=== PATIENT | female | born 2005 | race Caucasian/White ===

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

== ENCOUNTER 2024-07-14 17:24 | Emergency (ER) | payer BC, OTHER, SELFPAY ==
--- OUTSIDE RECORDS SUMMARY | 2024-07-14 17:27 | XMS_ITS | Encounter Summary ---
Author Organization [facility] Address [address] [place] [address] Care Team Providers Care Maintenance Supervisor Mechanical Name Role Phone Hugo Woo MD Primary Care Provider [phone] Provider, No Attributed RESOURCE Unavailable Unavailable Hugo Woo MD Unavailable [phone] Hugo Woo MD Primary Care Provider [phone] Hugo Woo MD Unavailable [phone] Hugo Woo MD Unavailable [phone] Encounter Details Date Type Department Care Team (Late st Contact Info) Description 04/07/2011 Immunization [facility] [address] [facility] [address] [place] [address] Janel Hunt, RN [address] [facility], [place] [id number] Preventative health care (Primary Dx) Social History Tobacco Use Types Packs/Day Years Used Date Smoking Tobacco: Never Assessed Comments Unknown Sex and Gender Information Value Date Recorded Sex Assigned at Not on file Legal Sex Female 4:02 AM CDT Gender Identity Not on file Sexual Orientation Not on file documented as of this encounter Plan of Treatment Not on file documented as of this encounter Visit Diagnoses Diagnosis Preventative health care- Primary Routine general medical examination at a health care facility documented in this encounter Care Teams Maintenance Supervisor Mechanical Relationship Specialty Start Date End Date Hugo Woo MD [address] [place] [address] PCP - General 07/19/06 03/23/19 Provider, No Attributed, RESOURCE [address] PCP - Attributed Provider 02/29/16 7 Hugo Woo MD [address] [place] [address] PCP - Attributed Provider 10/26/16 Hugo Woo MD [address] [place] [address] PCP - General 03/24/19 Hugo Woo MD [address] [place] [address] PCP - Attributed Provider 04/23/1909/29 Hugo Woo MD [address] [address] PCP - Attributed Provider 10/22/20 documented as of this encounter
--- OUTSIDE RECORDS SUMMARY | 2024-07-14 17:27 | XMS_ITS | Clinical Summary ---
Author Organization [facility] Address [address] [place] [address] [address] [place] [address] Care Team Providers Care Logistics Project Manager Name Role Phone Hugo Woo MD Primary Care Provider [phone] Hguo Woo MD Unavailable [phone] Allergies No known active allergies Medications ibuprofen (ADVIL;MOTRIN-I B) 200 MG capsule Take 400 mg by mouth every 4 to 6 hours as needed for severe pain or moderate pain Active drospirenone-et hinyl estradiol (PATIENCE) 3-0.03 mg tabletIndicatio ns:Acne vulgaris Take 1 tablet by mouth 1 time per day 84 tablet 2 03/11/2024 03/16/20 25 Active sertraline (ZOLOFT) 50 mg tabletIndicatio ns:Anxiety Take 1 tablet (50 mg) by mouth 1 time per day 90 tablet 2 03/11/2024 03/16/20 25 Active Active Problems No known active problems Immunizations Immunization Administration Dates Next Due FLU VACCINE TRIVALENT MULTIDOSE(Fluvirin,Afluria) 02/08/2010 FLU VACCINE TRIVALENT MULTIDOSE(Fluvirin,Afluria) 04/07/2011 FLU VACCINE TRIVALENT SINGLE DOSE(Fluvirin,Afluria) 03/09/2010 DTAP-HEP B-IPV 06/02/2005,03/31/2005,02/03/2005 DTaP(Infanrix) 11/12/2009,02/21/2006 FLU VACCINE SINGLE DOSE 0.5mL(6MO+Fluzone/Flulaval/Fluarix,3YR +Afluria) 02/14/2016 HIB,unspecified 11/21/2005, 6,03/31/2005,02/03 HPV9 06/23/2016,02/14/2016,12/13/2015 Hep A,peds/adol 06/23/2016,12/13/2015 INFLUENZA SINGLE DOSE 0.5ML 6 MONTHS AND UP 05/08/2022,02/18/2020,02/19/2019,02/20,02/05/2017,02/03/2015,02/06/2013 INFLUENZA(FLUMIST)INTRANASAL VACCINE 2 TO 49 YEARS 02/26/2014 IPV 11/12/2009 Influenza Vaccine 03/06/2008 Influenza Vaccine,unspecified 05/02/2022 ,05/06/2021,02/26/2007,04/16,03/16/2006 MMR 11/12/2009,11/21/2005 Meningococcal B,recombinant (Trumenba) ,11/26/2020 Meningococcal MCV4P (Menactra) 11/26/2020,2015 Pfizer COVID-19 Vaccine(Purp le Top) 12 Years and up 05/30/2021,05/06/2021 Pneumococcal Conj PCV7 11/21/2005 TDAP 12/13/2015 Varicella 11/12/2009,02/21/2006 Family History Medical History Relation Comments Thyroid Disease Father hypo Diabetes Maternal Aunt Diabetes Maternal Grandfather Hypertension Maternal Grandfather Thyroid Disease Maternal Grandfather hypo Diabetes Maternal Grandmother Gestational Diabetes Mother Hypertension Mother Thyroid Disease Mother hypo Relation Status Comments Father Maternal Aunt Maternal Grandfather Maternal Grandmother Mother Social History Tobacco Use Types Packs/Day Years Used Date Smoking Tobacco: Never Smokeless Tobacco: Never Tobacco Cessation:Counseling Given: Not Answered Alcohol Use Standard Drinks/Week Comments No 0 (1 standard drink = 0.6 oz pur e alcohol) PHQ-2 Answer Date Recorded PHQ-2 Total 0 07/07/2022 Abuse/Neglect Answer Date Recorded Member of Clubs or Organizations Not on file 12/14/2023 Does the patient display any signs or symptoms of abuse or neglect? No 12/14/2023 Sexually Active Control Partners Comments Never Comments No Sex and Gender Information Value Date Recorded Sex Assigned at Not on file Legal Sex Female 4:02 AM CDT Gender Identity Not on file Sexual Orientation Not on file Last Filed Vital Signs Vital Sign Reading Time Taken Comments Blood Pressure 124/77 12/14/2023 10:51 AM CDT Pulse 67 12/14/2023 10:51 AM CDT Temperature 36.7 C (98 F) 12/11/2022 1:30 PM CDT Respiratory Rate 12 12/14/2023 10:51 AM CDT Oxygen Saturation 98% 10/27/2017 8:03 PM CDT Inhaled Oxygen Concentration - - Weight 83.5 kg (184 lb) 12/14/2023 10:51 AM CDT Height 168.9 cm (5' 6.5) 12/14/2023 10:51 AM CD T Body Mass Index 29.25 12/14/2023 10:51 AM CDT Plan of Treatment Health Maintenance Due Date Last Done Comments Hepatitis C Screening 2004 HIV One Time Screening Ages 15-65 11/16/2019 Covid-19 Vaccine ( season) 2023 05/30/2021, 05/06/2021 Influenza Vaccine (#1) 2023 , 05/02/2022, 05/06/2021, Additional history exists DTAP,TDAP or TD Vaccine (7 - Td or Tdap) 12/12/2025 12/13/2015, 11/12/2009, 02/21/2006, Additional history exists Hepatitis B Vaccine Completed 06/02/2005, 03/31/2005, 02/03/2005 HPV Vaccine Completed 06/23/2016, 01/28, 12/13/2015 Men B Vaccine Completed 07/07/2022, 11/26/2020 Lipid Screening Completed 11/07/2022 Pneumococcal Vaccine (0-5yr; and At-risk 6-49yr) Aged Out No longer el igible based on patient's age to complete this topic Procedures Procedure Name Priority Date/Time Associated Diagnosis Comments LIPID PANEL Routine 11/07/2022 8:06 AM CDT Screening for cardiovascular condition from Last 3 Months or Most Recently Relevant to Health Maintenance Results * (ABNORMAL) LIPID PANEL (11/07/2022 8:06 AM CDT) Cholesterol 213(H) <170 mg/dL 11/07/2022 9:45 AM CDT [facility] Triglyceride 88 <90 mg/dL 11/07/2022 9:45 AM CDT [facility] HDL 62 >=45 mg/dL 11/07/2022 9:45 AM CDT [facility] LDL 133(H) <=110 mg/dL 11/07/2022 9:45 AM CDT [facility] Fasting Yes Yes, No, Unknown 11/07/2022 9:45 AM CDT [facility] Blood BLOOD SPECIMEN / Unknown Venipuncture / Unknown 11/07/2022 8:06 AM CDT 11/07/2022 8:07 AM CDT Hugo Woo MD LAB BLOOD Final Result [facility] [address] [place] [address] from Last 3 Months or Most Recently Relevant to Health Maintenance Care Teams Logistics Project Manager Relationship Specialty Start Date End Date Hugo Woo MD [address] [facility] [place] [address] PCP - General 03/24/19 Hugo Woo MD [address] [place] [address] PCP - Attributed Provider 10/22/20
--- OUTSIDE RECORDS SUMMARY | 2024-07-14 17:27 | XMS_ITS | Clinical Summary ---
Author Organization [facility] Address [address] [place] [id number] Care Team Providers Care Rn First Assist Name Role Phone Hugo Woo Primary Care Provider [phone] Allergies No known active allergies Medications No known medications Active Problems No known active problems Social History Tobacco Use Types Packs/Day Years Used Date Smoking Tobacco: Never Assessed Comments Unknown Sex and Gender Information Value Date Recorded Sex Assigned at Not on file Legal Sex Female 10:41 AM CDT Gender Identity Not on file Sexual Orientation Not on file Obstetrics History Plan of Treatment Health Maintenance Due Date Last Done Comments Well Child Check for age 3-20 10/17/2007 Tdap 11/16/2015 Depression screening for age 12+ 2016 HIV for age 15-65 11/16/2019 HPV series for age 9-26 (1 - 3-dose series) 11/16/2019 Chlamydia for age 16-24 2020 BMI (ht and wt on same day) for age 18+ 2022 Hepatitis C screening for ag e 18-79 2022 COVID-19 vaccine series (3 2023-25 season) 2023 05/30/2021, 05/06/2021 Influenza Vaccine (#1) 2023 Meningococcal series for age 11-21 Aged Out No longer eligible b ased on patient's age to complete this topic Pneumococcal series for age 6-49 Aged Out No longer eligible b ased on patient's age to complete this topic Insurance [employer] Care Teams Rn First Assist Relationship Specialty Start Date End Date Hugo Woo [address] [place] [address] PCP - General Family Practice 04/04/23
[2024-07-14 17:57] VITALS: BP 139/78; PULSE 66; RESP 18; TEMP 36.7; O2SAT 100; BMI 29.1
--- NOTE | 2024-07-14 20:06 | ED_ITS ---
HPI - General Adult General Date Seen: 07/14/24 Chief complaint: Head Injury/Pain Stated complaint: facial injury Time Seen by Provider: 07/14/24 19:55 History of Present Illness HPI narrative: 18-year-old generally healthy female . 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 She is presenting to the ER today with her teammate. She is also accompanied by her mother. She and her teammate were both outfield hers. They were both running after a long fly ball today when they ran and collided with each other running at top speed. They struck their faces and heads together. She is unsure if she had LOC. however she does have significant facial pain with pain and swelling on her left cheek. She also has pain in the left TMJ in feels like her left molars do not line up quite straight. She also suffered epistaxis willy was bleeding for lower left nostril and put a cotton plug in it. She has a frontal headache. She has been nauseous and has now had 4 episodes of vomiting (1 prior to arrival and 3 since she arrived here). She says that her left cheek is swollen and has some bruising under her left eye and her left side of the jaw is also swollen. Vision is normal in both eyes. Also mild posterior neck pain. No numbness or tingling in her arms or legs. No other injuries. She has no history of coagulopathy. Related Data Home Medications ?Medication ?Instructions ?Recorded ?Confirmed drospirenone 3 mg-ethinyl 1 tab PO DAILY 07/14/24 07/14/24 estradiol 0.03 mg tablet sertraline 50 mg tablet 50 mg PO DAILY 07/14/24 07/14/24 Allergies Allergy/AdvReac Type Severity Reaction Status Date / Time No Known Drug Allergies Allergy Verified 07/14/24 18:03 [facility] Medical History (Updated 07/14/24 @ 22:43 by Michael Amaya MD) No significant past medical history Surgical History (Updated 07/14/24 @ 20:34 by Carlos Casey RN) No significant past surgical history Social History Smoking Status: Never smoker Second hand tobacco smoke exposure: No How often do you have a drink containing alcohol: never AUDIT-C Alcohol total score: 0 Non-prescribed substance use: denies use Exam Narrative: Exam Narrative: Primary Survey: A- patent. Speaking clearly. Phonation normal. No stridor. B- breathing easily. Lung sounds clear and equal. Oxygen saturation normal on room air C- no active bleeding. Blood pressure stable. Symmetric pulses and cap refill in 4 extremities. D- alert and oriented x3. GCS 15. No focal deficits. Constitutional: Appears well-developed and well-nourished. Alert. Conversant. Actively vomiting as I enter the room HENT: Head: No depressed skull fracture, Raccoon Eyes, Abel's sign, or hemotympanum. Face normal. TMs normal. Nose: Swollen. Recent left nares epistaxis. No active bleeding. Nasal septum is normal. No septal deviation or hematoma. No nasal lacerations. She has left cheek swelling and ecchymoses. Superficial abrasion just below her left eye which is thought to be triggered by her teammates sunglasses. She also has a superficial abrasion on the body of the left mandible that does not penetrate through the dermis require sutures. She has limited range of motion and mandible but does not have trismus. When she bites down her on her molar she feels like the left side touch is 1st, which is not normal. She has no obvious intraoral injuries or dental injuries. No intraoral lacerations. No trismus. No submandibular swelling Mouth/Throat: Oral mucosa is clear and moist. no trismus. Pharynx normal. Tonsils symmetric. No tonsillar enlargement, erythema, or exudate. Eyes: Conjunctivae normal. EOM normal. Pupils equal, round, and reactive to light. No scleral icterus. Neck: Normal range of motion. Neck supple. No tracheal deviation present. No definite posterior midline tenderness but does have mild posterior neck ache. No definite step-off. Given other injuries including distracting facial injuries, cannot be cleared by nexus Cardiovascular: Normal rate, regular rhythm. No gallop. No friction rub. No murmur heard. Symmetric radial artery pulses Pulmonary/Chest: Effort normal. No stridor. No respiratory distress. No wheezes. No rales. No rhonchi . No tenderness. Abdominal: Soft. Bowel sounds normal. No distension. No mass. No tenderness. No rebound. No guarding. Musculoskeletal: No T or L-spine tenderness RUE: Normal range of motion. No tenderness. No deformity LUE: Normal range of motion. No tenderness. No deformity RLE: Normal range of motion. No edema. No tenderness. No deformity LLE: Normal range of motion. No edema. No tenderness. No deformity Neurological: Alert and oriented to person, place, and time. Normal strength. CN II-VII intact. No sensory deficit. GCS eye subscore is 4. GCS verbal subscore is 5. GCS motor subscore is 6. Normal coordination Skin: Skin is warm and dry. No rash noted. No pallor. Normal capillary refill. Psychiatric: Normal mood. Normal affect. Const: Vital Signs, click to edit/add: Vital Signs - 24 hr 07/14/24 17:57 07/14/24 20:32 07/14/24 22:08 Temperature 98.1 F 98.1 F Pulse Rate [Pulse Oximeter] 66 Respiratory Rate 18 Blood Pressure [Ri ght Upper Arm] 139/78 Pulse Oximetry 100 100 Oxygen Delivery Me thod Room Air 07/14/24 22:48 07/14/24 22:49 Temperature 98.1 F 98.1 F Pulse Rate [Pulse Oximeter] 72 72 Respiratory Rate 18 18 Blood Pressure [Ri ght Upper Arm] 138/85 138/85 Pulse Oximetry 100 Oxygen Delivery Me thod Room Air Course Course ED Course: Recheck-still mildly nauseous after Zofran. Second dose ordered Reevaluation(s) Reevaluation #1: Discussed CT imaging findings with our ENT surgeon, Dr. Hope. Given the complexity of the patient's left maxillary injury, with involvement of the orbital floor, he recommends that she be referred to the Trauma Center for evaluation. He suspect she may need some operative plating. Likely could be done in an expeditious outpatient basis, but hopefully not emergent Reevaluation #2: I contacted [facility]. Discussed initially with Dr. Valdez, ER. Subsequently discussed with Dr. queen , ENT. Dr. Queen recommend that we transfer the patient to [facility] ER tonight so she can be evaluated by ENT and Ophthalmology. Vital Signs Vital signs: Initial Vital Signs Temperature 98.1 F 07/14/24 17:57 Temperature Source Temporal Artery Scan 07/14/24 17:57 Pulse Rate 66 07/14/24 17:57 Respiratory Rate 18 07/14/24 17:57 Blood Pressure 139/78 07/14/24 17:57 Blood Pressure Mean 98 07/14/24 17:57 Blood Pressure Position Sitting 07/14/24 17:57 Pulse Oximetry 100 07/14/24 17:57 Oxygen Delivery Method Room Air 07/14/24 17:57 Vital Signs Temperature 98.1 F 07/14/24 17:57 Pulse Rate 66 07/14/24 17:57 Respiratory Rate 18 07/14/24 17:57 Blood Pressure 139/78 07/14/24 17:57 Pulse Oximetry 100 07/14/24 17:57 Oxygen Delivery Method Room Air 07/14/24 17:57 Temperature 98.1 F 07/14/24 22:49 Pulse Rate 72 07/14/24 22:49 Respiratory Rate 18 07/14/24 22:49 Blood Pressure 138/85 07/14/24 22:49 Pulse Oximetry 100 07/14/24 22:48 Oxygen Delivery Method Room Air 07/14/24 22:48 Medications Administered Medications: Discontinued Medications Generic Name Dose Route Start Last Admin Trade Name Freq PRN Reason Stop Dose Admin Hydrocodone Bitart/Acetaminophen 1 tab 07/14/24 20:10 07/14/24 20:20 Hydrocodone-Acetamin 5-325 Mg 1 Tab PO 07/14/24 20:11 1 tab ONCE ONE Administration Ondansetron HCl 4 mg 07/14/24 20:10 07/14/24 20:20 Ondansetron Odt 4 Mg Tab PO 07/14/24 20:11 4 mg ONCE ONE Administration Ondansetron HCl 4 mg 07/14/24 22:39 07/14/24 22:41 Ondansetron Odt 4 Mg Tab PO 07/14/24 22:40 4 mg ONCE ONE Administration Medical Decision Making [facility] Narrative Medical decision making narrative: 18-year-old female presents to the ER today with injuries after a collision ring a softball game. 1. This patient presents with blunt head trauma. Differential includes intracranial injuries (e.g. skull fracture, epidural hematoma, subdural hematoma, intracerebral hemorrhage, and traumatic subarachnoid hemorrhage), verses concussion or other traumatic brain injury. CT imaging was obtained and fortunately was normal. At this time it appears that the patient's symptoms are due to a concussion. The patient/family understand that they must return if any red flags appear/develop in the coming hours/days, as this may represent an indication to perform a repeat CT scan or further evaluation. I have noted that red flags include: headaches that get worse, increased drowsiness, strange behavior, repetitive speech, seizures, repeated vomiting, growing confusion, increased irritability, slurred speech, weakness or numbness, and loss of responsiveness. This information will also be provided in writing at discharge. I have discussed the second impact syndrome, and the importance of not sustaining repeated concussion in the next 1-2 weeks. Post concussive syndrome is also discussed. The patient's questions have been answered. They have a responsible adult to accompany them home.. 2. Patient's cervical spine could not be cleared by clinical criteria. C-spine CT is obtained and is normal. 3. Facial trauma. Patient did have significant left facial pain, swelling, bruising and also concern for potential mandible injury. Facial CT is obtained and does show a complex fracture involving left maxilla which involves the anterior and posterior hoyos of the maxillary sinus as well as the orbital floor. In discussion with Dr. Hope ENT, on-call for [place] [facility], he recommends referral to the trauma center. We attempted to arrange an outpatient referral to the ENT clinic at [facility]. We digitally transmitted her CT images to the trauma center However the ENT surgeon from [facility] recommends that the patient transfer expeditiously to the [facility] at [facility] for further evaluation. 4. The remainder of her clinical exam is negative for signs of traumatic injury. At this point, with reasonable clinical confidence I think she is stable to transfer to [facility] by private car with her mother. Dr. Valdez, ED and Dr. Queen, ENT are accepting. Imaging Data CT scan - head: Attestation: I have reviewed the pertinent imaging results. Radiologist's impression: IMPRESSION: 1. No skull fracture or acute intracranial hemorrhage identified. 2. Facial structures are detailed in a separate report. CT C spine: Attestation: I have reviewed the pertinent imaging results. Radiologist's impression: Impression: 1. No evidence of acute fracture or traumatic malalignment in the cervical spine. CT facial bones: Attestation: I have reviewed the pertinent imaging results. Radiologist's impression: [] Discharge Plan Discharge Clinical Impression: Fracture of left maxilla, Closed head injury, Fracture of orbital floor Patient Disposition: Xfer Other Condition: Stable Instructions: Facial Fracture (DC), Head Injury (DC) Additional Instructions: This evening, please go directly to the emergency department and [facility] ([facility]) Their emergency department is located on [address] You do have significant injuries to your left cheek. Please see the medical providers at [facility] and they will determine whether not you need surgery to repair your broken left cheek bone and eye socket. Please do not blow your nose or do other activities that might force air through your broken sinus into your cheek You also have signs of a concussion. Concussion is in an visible injury tear brain. You should avoid contact sports or dangerous activities until you are cleared to return to full activity by your training staff at [facility]. Typically we recommend a 7 day period of rest and light activity beginning after your asymptomatic. After 7 days you can then gradually progress back to your normal activities. If you have worsening headache, uncontrolled nausea vomiting, or any concerns, please see your doctors or return to the ER right away. Prescriptions: No Action sertraline 50 mg tablet 50 mg PO DAILY drospirenone-ethinyl estradiol 3-0.03 mg tablet 1 tab PO DAILY Stand Alone Forms: [employer] Info Instructions
--- NOTE | 2024-07-14 20:10 | CRLHL7_ITS ---
For Patients: As a result of the Century Cures Act, medical imaging exams and procedure reports are released immediately into your electronic medical record. You may view this report before your referring provider. If you have questions, please contact your health care provider. Indication: Blunt trauma, facial injury Technique: Helical axial sections were obtained through the facial skeleton, mandible and adjacent structures without intravenous contrast material. Data was reformatted not only in axial but also coronal planes. Comparison: Same-day CT head Findings: Left zygomaticomaxillary complex fracture pattern, involving the inferior orbital rim and floor, anterior and posterior hoyos of the maxillary sinus, and lateral orbital rim. There is sparing of the left zygomatic arch, with suspected additional nondisplaced fracture of the left nasal bone. Remaining facial bones appear grossly intact. Scattered paranasal sinus mucosal thickening, with left maxillary sinus air-fluid level/hemosinus. Bilateral temporomandibular joints appear anatomic. Impression: 1. Left ZMC fracture pattern, sparing the zygomatic arch, with suspected additional nondisplaced fracture of the left nasal bone. 2. Left maxillary sinus air-fluid level/hemo sinus. Please note that all CT scans at this facility use dose modulation, iterative reconstruction, and/or weight-based dosing when appropriate to reduce radiation dose to as low as reasonably achievable. Dictated by Renay Gregory MD @ 07/14/2024 9:15:25 PM (Electronically Signed)
--- NOTE | 2024-07-14 20:10 | CRLHL7_ITS ---
For Patients: As a result of the Century Cures Act, medical imaging exams and procedure reports are released immediately into your electronic medical record. You may view this report before your referring provider. If you have questions, please contact your health care provider. Indication: Blunt trauma, neck pain Technique: Noncontrast axial CT of the cervical spine with coronal and sagittal reformats. Comparison: None. Findings: The normal cervical lordosis is preserved. No significant spondylolisthesis. Vertebral body heights are maintained. No acute fracture identified. The spinal canal and neural foramina appear grossly patent. No suspicious findings in the prevertebral or paraspinal soft tissues. Included lung apices are clear. Impression: 1. No evidence of acute fracture or traumatic malalignment in the cervical spine. Please note that all CT scans at this facility use dose modulation, iterative reconstruction, and/or weight-based dosing when appropriate to reduce radiation dose to as low as reasonably achievable. Dictated by Renay Gregory MD @ 07/14/2024 9:08:19 PM (Electronically Signed)
--- NOTE | 2024-07-14 20:10 | CRLHL7_ITS ---
For Patients: As a result of the Century Cures Act, medical imaging exams and procedure reports are released immediately into your electronic medical record. You may view this report before your referring provider. If you have questions, please contact your health care provider. INDICATION: Blunt trauma, head injury, recurrent vomiting, headache TECHNIQUE: Noncontrast axial CT of the head. Coronal and sagittal reformats. Bone and soft tissue algorithms. COMPARISON: Same day CT facial bones FINDINGS: The calvarium appears grossly intact. No acute intracranial hemorrhage or abnormal extra-axial fluid collection identified. Ventricles and cortical sulci are age-appropriate in configuration. Hammer-white matter differentiation is grossly preserved. White matter attenuation is within normal limits. Facial structures are detailed in a separate report. Mastoid air cells are clear. IMPRESSION: 1. No skull fracture or acute intracranial hemorrhage identified. 2. Facial structures are detailed in a separate report. Please note that all CT scans at this facility use dose modulation, iterative reconstruction, and/or weight-based dosing when appropriate to reduce radiation dose to as low as reasonably achievable. Dictated by Renay Gregory MD @ 07/14/2024 9:06:08 PM (Electronically Signed)
[2024-07-14] MEDS: HYDROCODONE-ACETAMIN 5-325 MG 1 TAB PO (20:20)
[2024-07-14] MEDS: ONDANSETRON ODT 4 MG TAB PO ×2 (20:20→22:41)
[2024-07-14 20:32] VITALS: O2SAT 100
--- OUTSIDE RECORDS SUMMARY | 2024-07-14 20:50 | XMS_ITS | Encounter Summary ---
Author Organization [facility] Address [address] [place] [address] Care Team Providers Care Home Health Travel Ot Name Role Phone Hugo Woo MD Primary Care Provider [phone] Provider, No Attributed RESOURCE Unavailable Unavailable Hugo Woo MD Unavailable [phone] Hugo Woo MD Primary Care Provider [phone] Hugo Woo MD Unavailable [phone] Hugo Woo MD Unavailable [phone] Encounter Details Date Type Department Care Team (Late st Contact Info) Description 04/07/2011 Immunization [facility] [address] [facility] [address] [place] [address] Janel Hunt, RN [address] [facility], [place] [id number] Preventative health care (Primary Dx) Social History [...] facility documented in this encounter Care Teams Home Health Travel Ot Relationship Specialty Start Date End Date Hugo Woo MD [address] [place] [address] PCP - General 07/19/06 03/23/19 Provider, No Attributed, RESOURCE [address] PCP - Attributed Provider 02/29/16 7 Hugo Woo MD [address] [place] [address] PCP - Attributed Provider 10/26/16 Hugo Woo MD [address] [place] [address] PCP - General 03/24/19 Hugo Woo MD [address] [place] [address] PCP - Attributed Provider 04/23/1909/29 Hugo Woo MD [address] [place] [address] PCP - Attributed Provider 10/22/20 documented as of this encounter
--- OUTSIDE RECORDS SUMMARY | 2024-07-14 20:50 | XMS_ITS | Clinical Summary ---
Author Organization [facility] Address [address] [place] [address] [address] [place] [address] Care Team Providers Care Applications Project Manager Name Role Phone Hugo Woo MD Primary Care Provider [phone] Hugo Woo MD Unavailable [phone] Allergies No known active allergies Medications [...] No, Unknown 11/07/2022 9:45 AM CDT [facility] Blood BLOOD SPECIMEN / Unknown Venipuncture / Unknown 11/07/2022 8:06 AM CDT 11/07/2022 8:07 AM CDT Hugo Woo MD LAB BLOOD Final Result [facility] [address] [facility] [place] [address] from Last 3 Months or Most Recently Relevant to Health Maintenance Care Teams Applications Project Manager Relationship Specialty Start Date End Date Hugo Woo MD [address] [facility] [place] [address] PCP - General 03/24/19 Hugo Woo MD [address] [place] [address] PCP - Attributed Provider 10/22/20
[2024-07-14 22:08] VITALS: TEMP 36.7
[2024-07-14 22:48] VITALS: BP 138/85; PULSE 72; RESP 18; TEMP 36.7; O2SAT 100
[2024-07-14 22:49] VITALS: BP 138/85; PULSE 72; RESP 18; TEMP 36.7
== END 2024-07-14 22:50 | disposition other institution (70) ==
PROVIDERS: Emergency Provider Emergency Medicine
DX: S02.40DA Maxillary fracture, left side, initial encounter for closed fracture (principal); S02.32XA Fracture of orbital floor, left side, initial encounter for closed fracture; W51.XXXA Accidental striking against or bumped into by another person, initial encounter; Y93.64 Activity, baseball
CPT/HCPCS: 70450; 70486; 72125; 94761; 99284; 99285; A9270